=== PATIENT | female | born 1950 | race Caucasian/White ===

== ENCOUNTER → 2017-01-13 | Outpatient (CLI) | payer OTHER | LOC: BRMIMAGING 13:14 | PROVIDERS: ATTEND Family Medicine | DX: Z12.31 Encounter for screening mammogram for malignant neoplasm of breast (principal); Z13.820 Encounter for screening for osteoporosis; M85.80 Other specified disorders of bone density and structure, unspecified site; Z78.0 Asymptomatic menopausal state; K90.0 Celiac disease; Z79.890 Hormone replacement therapy | CPT/HCPCS: G0202 ==

== ENCOUNTER → 2018-09-20 | Outpatient (CLI) | payer OTHER | LOC: BRMIMAGING 08:24 | PROVIDERS: ATTEND Family Medicine | DX: Z12.31 Encounter for screening mammogram for malignant neoplasm of breast (principal); Z80.3 Family history of malignant neoplasm of breast ==